=== PATIENT | male | born 1960 | race Caucasian/White ===

== ENCOUNTER 2019-07-19 18:38 | Emergency (ER) | payer OTHER ==
[~2019-07-19] VITALS: Ht 160 cm; Wt 75.3 kg
[2019-07-19 18:54] VITALS: Ht 160 cm; Wt 75.3 kg
[2019-07-19 20:25] VITALS: BP 139/87
== END 2019-07-19 20:25 | disposition home or self-care (01) ==
LOC: ED 18:38
DX: S61.412A Laceration without foreign body of left hand, initial encounter (principal); S01.511A Laceration without foreign body of lip, initial encounter; E78.00 Pure hypercholesterolemia, unspecified; W11.XXXA Fall on and from ladder, initial encounter; Y93.89 Activity, other specified; Y92.89 Other specified places as the place of occurrence of the external cause; Y99.8 Other external cause status
CPT/HCPCS: J2001